=== PATIENT | female | born 1990 | race Caucasian/White ===

== ENCOUNTER 2024-04-11 08:29 | Day surgery (SDC) | payer OTHER ==
[2024-04-07 12:00] VITALS: BMI 27.4
[~2024-04-11 08:29] MED LIST: LIDOCAINE 1% (10MG/ML) FOR IV START INTRADERMA PRN
[2024-04-11] MEDS: LACTATED RINGERS 1,000 ML IV SCH (09:12)
[2024-04-11 09:20] LABS: Glucose,Whole Blood 98 mg/dL (70-110)
[2024-04-11] MEDS ORDERED: PROPOFOL 10 MG/ML 20 ML VIAL IV ONE (09:45)
[2024-04-11 09:47] VITALS: TEMP 98.6
--- NOTE | 2024-04-11 09:57 | P.PCN ---
Date of Procedure: 04/11/24 Procedure(s) Performed: BRIEF HISTORY: Patient is a 33-year-old pleasant white female scheduled for an elective colonoscopy as a part of evaluation of intermittent rectal bleeding for the last 6 months duration. PROCEDURE PERFORMED: Colonoscopy. PREOPERATIVE DIAGNOSIS: Intermittent rectal bleeding. IV sedation per Anesthesia. PROCEDURE: After informed consent was obtained, the patient, was brought into the endoscopy unit. IV sedation was administered by Anesthesia under continuous monitoring. Digital rectal examination was normal. Initially the Olympus CF-160 flexible video colonoscope was then inserted in the rectum, gradually advanced into the cecum without any difficulty. Careful examination was performed as the scope was gradually being withdrawn. Ileocecal valve and the appendiceal orifice were visualized and appeared normal. Prep was excellent. Mucosa of the cecum, ascending colon, transverse colon, descending colon, sigmoid colon, and rectum appeared normal. Retroflexion was performed in the rectum and small internal hemorrhoid were seen. The patient tolerated the procedure well. IMPRESSION: Normal-appearing colon from rectum to cecum . Small internal hemorrhoids. RECOMMENDATIONS: Findings of this examination were discussed with the patient as well as her family. She was advised to be on high-fiber diet and fiber supplements on a regular basis. Recommended repeat screening colonoscopy at age 43
[2024-04-11 10:47] VITALS: BP 107/70; PULSE 93; RESP 16
== END 2024-04-11 10:32 | disposition home or self-care (01) ==
LOC: ORWHC2ENDO 08:29
PROVIDERS: ATTEND Internal Medicine Gastroenterology
DX: K62.5 Hemorrhage of anus and rectum (principal); F41.9 Anxiety disorder, unspecified; K64.8 Other hemorrhoids; Z88.5 Allergy status to narcotic agent; Z98.890 Other specified postprocedural states; Z79.899 Other long term (current) drug therapy
CPT/HCPCS: 81025; 45378; J2704